=== PATIENT | female | born 1970 | race Caucasian/White ===

== ENCOUNTER 2017-10-16 20:48 | Emergency (ER) | payer OTHER ==
[~2017-10-16] VITALS: Ht 149.9 cm; Wt 72.6 kg
[2017-10-16 20:50] VITALS: BP_SYST 120
--- NOTE | 2017-10-16 21:16 | NUR ---
Placed in room 1 . Placed on manager cardiac, blood pressure machine and pulse oximeter. To gown for exam. Side rails up. Report given to [facility].
--- NOTE | 2017-10-16 21:20 | NUR ---
Patient brought in ACLS for altered level of consciousness. Per medics, Patient was found unresponsive and only responsive to pain. Patient was given narcan 2mg and is now AAOx3. is at bedside. Patient reports she took some medication but does not know what. No other complaints/injuries per patient or as noted. Will continue to monitor .
--- NOTE | 2017-10-16 21:30 | NUR ---
ER at bedside examining patient.
[2017-10-16 21:48] LABS: BASOPHILS # (AUTO) 0.1 K/uL (0.0-0.2); BASOPHILS % (AUTO) 0.8 % (0.0-2.0); EOSINOPHILS # (AUTO) 0.2 K/uL (0.0-0.4); EOSINOPHILS % (AUTO) 2.9 % (0.0-4.0); HEMATOCRIT 37.2 % (36-48); HEMOGLOBIN 12.5 g/dL (12.0-16.0); LYMPHOCYTES # (AUTO) 2.3 K/uL (1.0-5.5); LYMPHOCYTES % (AUTO) 32.4 % (20.5-51.5); MEAN CORPUSCULAR HEMOGLOBIN 30 pg (27-31); MEAN CORPUSCULAR HGB CONC 34 % (32-36); MEAN CORPUSCULAR VOLUME 90 fL (79.0-98.0); MONOCYTES # (AUTO) 0.4 K/uL (0.0-1.0); MONOCYTES % (AUTO) 6.2 % (1.7-9.3); NEUTROPHILS # (AUTO) 4.2 K/uL (1.8-7.7); NEUTROPHILS % (AUTO) 57.7 % (40.0-70.0); PLATELET COUNT (AUTO) 235 K/uL (130-430); RED BLOOD CELL COUNT(AUTO) 4.14 MIL/uL (4.2-6.2); RED CELL DISTRIBUTION WIDTH 13.5 % (9.0-15.0); WHITE BLOOD COUNT (AUTO) 7.2 K/uL (4.8-10.8)
[2017-10-16 22:12] LABS: ANION GAP 7 (5-15); CALCIUM 9.3 mg/dL (8.4-11.0); CHLORIDE 109 mmol/L (98-107); CREATININE 0.96 mg/dL (0.55-1.30); GLUCOSE 85 mg/dL (70-99); POTASSIUM 3.7 mmol/L (3.5-5.1); SODIUM SERUM 138 mmol/L (136-145); UREA NITROGEN, BLOOD 11 mg/dL (8-21)
[2017-10-16 22:13] LABS: GFR AFRICAN AMERICAN 80 mL/min (>90)
[2017-10-16 22:16] LABS: ALANINE AMINOTRANSFERASE 26 U/L (12-78); ALBUMIN 3.5 g/dL (3.4-4.8); ASPARTATE AMINOTRANSFERASE 21 U/L (10-37); LIPASE 111 U/L (73-393); TOTAL BILIRUBIN 0.2 mg/dL (0.0-1.0)
[2017-10-16 22:19] LABS: ACETAMINOPHEN < 1 ug/mL (1-30); ALCOHOL, BLOOD < 3 mg/dL (<10)
--- NOTE | 2017-10-16 22:42 | NUR ---
Patient resting quietly. No acute distress noted. Family at bedside. Patient's chest rise and fall noted. will continue to monitor.
--- NOTE | 2017-10-16 22:42 | NUR ---
Note randal in ED - 10/17/17 at 0316 by [email or web address] Patient resting quietly. No acute distress noted. Vital signs within normal range.
--- NOTE | 2017-10-16 23:57 | NUR ---
Patient resting quietly. No acute distress noted. will continue to monitor
--- NOTE | 2017-10-17 00:20 | NUR ---
Urine specimen collected and sent to lab.
[2017-10-17 00:58] VITALS: BP_SYST 128
--- NOTE | 2017-10-17 00:58 | NUR ---
Patient given written and verbal discharge instructions and verbalizes understanding. ER MD discussed with patient the results and treatment provided. Patient in stable condition. ID arm band removed. IV catheter removed intact and dressing applied, no active bleeding. No Rx given. Patient educated on pain management and to follow up with PMD in 2-3 days. Pain Scale 0/10 Opportunity for questions provided and answered.
[2017-10-17 01:09] LABS: BARBITURATE, URINE NEGATIVE (NEG <=200); BENZODIAZEPINE, URINE POSITIVE (NEG <=150); CANNABINOID, URINE NEGATIVE (NEG <=50); COCAINE, URINE NEGATIVE (NEG <=150); METHAMPHETAMINES SCREEN,URINE NEGATIVE (NEG <=500); PHENCYCLIDINE SCREEN,URINE NEGATIVE (NEG <=25); URINE AMPHETAMINE NEGATIVE (NEG <=500); URINE METHADONE NEGATIVE (NEG <=200)
[2017-10-17 01:10] LABS: OPIATE, URINE NEGATIVE (NEG <=100); UR TRICYCLIC ANTIDEPRESSANTS POSITIVE (NEG <=300); URINE OXYCODONE SCREEN POSITIVE (NEG <=100); URINE PROPOXYPHENE SCREEN NEGATIVE (NEG <=300)
== END 2017-10-17 00:58 | disposition home or self-care (01) ==
LOC: SED 20:48
DX: G92 Toxic encephalopathy (principal); T65.91XA Toxic effect of unspecified substance, accidental (unintentional), initial encounter; F20.9 Schizophrenia, unspecified; Z90.710 Acquired absence of both cervix and uterus; L93.0 Discoid lupus erythematosus; Z88.8 Allergy status to other drugs, medicaments and biological substances; Y92.89 Other specified places as the place of occurrence of the external cause
CPT/HCPCS: 36415; 80053; 80307; 83690; 85025; 93005; 99285; G0480; G0481; G0482